=== PATIENT | female | born 1980 | race Two or more races ===

== ENCOUNTER → 2025-02-20 | Outpatient (CLI) | payer MEDICAID, SELFPAY ==
--- NOTE | 2025-02-20 09:16 | XR_ITS ---
EXAMINATION: Right knee 4 views TECHNIQUE: AP oblique lateral axial right knee 4 views Date and time: February 20, 2025, 0924 hours INDICATIONS: Injury to the knee November 29, 2024 with knee pain FINDINGS: Prominent osteopenia No definite acute fracture Moderate knee effusion No patellar dislocation IMPRESSION: Prominent osteopenia No definite acute fracture, consider CT scan knee without contrast follow-up as clinically warranted
== END | disposition home or self-care (01) ==
LOC: SDIM 08:56
PROVIDERS: Referring Provider Orthopaedic Surgery; Visit Provider Orthopaedic Surgery
DX: S82.121D Displaced fracture of lateral condyle of right tibia, subsequent encounter for closed fracture with routine healing (principal); X58.XXXD Exposure to other specified factors, subsequent encounter
CPT/HCPCS: 73564